=== PATIENT | female | born 1985 | race Caucasian/White ===

== ENCOUNTER 2023-08-13 10:13 | Day surgery (SDC) | payer BC ==
[2023-08-13] MEDS ORDERED: Lactated Ringers 1,000 ML IV ONE ×2 (10:22→12:26)
[2023-08-13] MEDS: Lactated Ringers 1,000 ML IV SCH (10:30)
[2023-08-13 10:52] LABS: HCG URINE TEST NEGATIVE (NEGATIVE)
[2023-08-13] MEDS ORDERED: DIPRIVAN 200 MG/20 ML IV ONE ×4 (11:52→12:42)
[2023-08-13] MEDS ORDERED: Xylocaine-Mpf 2% 5 Ml Vial ONE (11:52)
[2023-08-13 13:27] VITALS: RESP 18
[2023-08-13 13:35] VITALS: TEMP 97; O2SAT 100
[2023-08-13 13:43] VITALS: BP 122/77; PULSE 64
--- NOTE | 2023-08-16 08:53 | OP ---
PROCEDURE DATE/TIME: 08/13/2023 1200 PREOPERATIVE DIAGNOSIS: Abdominal pain, nausea, vomiting, diarrhea, change in bowel function. POSTOPERATIVE DIAGNOSES: 1) Hiatal hernia. 2) Gastroesophageal reflux disease. 3) Gastritis. 4) Minimal diverticulosis. 5) Anal tag. 6) Colon polyps. PROCEDURES: 1) EGD with biopsy. 2) Colonoscopy with cold forceps polypectomies and biopsies. PROCEDURE PERFORMED BY: Rossy Newton M.D. ANESTHESIA: MAC. QUANTITATIVE BLOOD LOSS: Minimal. COMPLICATIONS: None. SPECIMENS: 1) Duodenum; rule out celiac disease. 2) Antrum; rule out Helicobacter pylori. 3) Gastroesophageal junction. 4) Random right colon and rectal biopsies, terminal ileum. 5) Cecal polyps. 6) Rectal polyp. HISTORY: This is a 38-year-old female who presents with multiple GI symptoms including abdominal pain, nausea, vomiting, diarrhea and change in her bowel function. We have discussed both EGD and colonoscopy. She understands the risks, benefits and alternatives. She wants to proceed with both procedures. She has done her prep. All of her questions have been answered and she is ready to go back to the endoscopy suite. She was seen prior to surgery. H&P and consent confirmed. The family at bedside. DESCRIPTION OF PROCEDURE: She was brought back to the endoscopy suite. She was laid in left lateral decubitus position. A complete time out was performed. First, the scope was introduced into the mouth, oropharynx, down into the esophagus, then stomach and then into the duodenum to approximately the second portion of the duodenum. The duodenum looked normal. I did take multiple biopsies to rule out celiac disease due to her symptoms. After biopsy, these sites were hemostatic. I did note that the patient did have slightly more fragile mucosa but she did well with biopsy and then the scope was able to be withdrawn back into the stomach. In the stomach, she did have moderate gastritis. Upon initial entry to the stomach, she did have some old dried blood this was a small quantity but was definitely present scattered throughout the stomach. She also had a couple of erosions in the stomach with subtle ulceration with some dried blood. The tissues here appeared to be irritated. We took biopsies in the stomach and sent these for both pathology as well as for Helicobacter pylori testing. On retroflex view, she does have a hiatal hernia. There were no other significant findings and then the scope was carefully withdrawn. We insured hemostasis here as well and everything looked hemostatic both in the duodenum and the stomach. We withdrew back into the distal esophagus. The gastroesophageal junction is at approximately 36.5 cm. She has approximately a 2 cm sliding hiatal hernia. We did note some mild reflux changes at the gastroesophageal junction. I took biopsies here. There was one area with slightly irregular tissue. All of that appeared very benign but we took biopsies to rule out Lopez's disease, this was hemostatic and then we carefully withdrew the scope. The remainder of the esophagus was normal. The patient tolerated the procedure very well. There were no immediate complications. The patient was then positioned for colonoscopy. A rectal exam and inspection were both done. She had a small anal tag that was tiny and benign appearing. Otherwise, the rectal exam was normal. The scope was then gently inserted and advanced to the level of the cecum. The ileocecal valve and appendix were identified. There was some liquid stool in the colon that was suctioned and irrigated free. We did also visualize the ileocecal valve which appeared to be normal and the immediate terminal ileum appeared to be normal. The colon mucosa also appeared to be normal. She had one small diverticula in the sigmoid colon and then she had two small polyps. The polyps were located in the cecum and rectum. These were both approximately 1 to 2 mm in size taken in entirety with cold forceps and sent to pathology. These sites were nicely hemostatic after polypectomy. We did also do multiple biopsies including terminal ileum, random right colon, random left colon and rectum to rule out microscopic colitis or other pathology due to her symptoms and all of these sites were taken with cold forceps and insured to be hemostatic as well and then the scope was fully removed. I did not find any other findings than those mentioned above. The patient tolerated this procedure very well. At the completion of this procedure she was stable with good hemostasis and doing well. She will plan for discharge home and then she will be following up with me as an outpatient to discuss the final pathology results. We have also discussed her immediate postoperative instructions with her mom and her as well.
== END 2023-08-13 13:50 | disposition home or self-care (01) ==
LOC: SDC 10:13
PROVIDERS: ATTEND Surgery
DX: K29.70 Gastritis, unspecified, without bleeding (principal); R10.9 Unspecified abdominal pain; R11.2 Nausea with vomiting, unspecified; R19.7 Diarrhea, unspecified; R19.4 Change in bowel habit; K44.9 Diaphragmatic hernia without obstruction or gangrene; K21.9 Gastro-esophageal reflux disease without esophagitis; K57.30 Diverticulosis of large intestine without perforation or abscess without bleeding; K64.4 Residual hemorrhoidal skin tags; K63.5 Polyp of colon
CPT/HCPCS: 81025; J2704